=== PATIENT | female | born 1985 | race Caucasian/White ===

== ENCOUNTER 2020-01-06 13:10 | Observation (INO) | payer OTHER ==
[2020-01-06 16:16] LABS: GLUCOMETER DEV NAME(LOC) PVLAB.13
== END 2020-01-06 13:30 | disposition home or self-care (01) ==
LOC: 4S 13:10
PROVIDERS: ADMIT Obstetrics & Gynecology; ATTEND Obstetrics & Gynecology
DX: Z03.818 Encounter for observation for suspected exposure to other biological agents ruled out (principal); Z3A.00 Weeks of gestation of pregnancy not specified
CPT/HCPCS: 87635; G0378

== ENCOUNTER 2020-01-10 11:15 | Inpatient (IN) | payer OTHER ==
[~2020-01-10] VITALS: Ht 165.1 cm; Wt 71.2 kg
[2020-01-10] MEDS ORDERED: RINGERS SOLUTION,LACTATED 1,000 ML IV PRN (11:16)
[2020-01-10] MEDS ORDERED: OXYTOCIN 30 UNITS/LACT RINGERS 500 ML IV ONE (11:16)
[2020-01-10] MEDS ORDERED: METHYLERGONOVINE MALEATE 0.2 MG/ML VIAL IM PRN (11:30)
[2020-01-10] MEDS ORDERED: CITRIC ACID/SODIUM CITRATE 30 ML SOLUTION UDCUP PO PRN (11:30)
[2020-01-10] MEDS ORDERED: METOCLOPRAMIDE HCL 5 MG/ML 2 ML VIAL IVP PRN (11:30)
[2020-01-10] MEDS ORDERED: MISOPROSTOL 50 MCG TABLET PO ONE ×2 (11:30→19:30)
[2020-01-10] MEDS ORDERED: FentaNYL CITRATE-PF 100 MCG/2 ML VIAL IVP PRN (11:30)
[2020-01-10] MEDS ORDERED: LIDOCAINE/PF 1% 30 ML VIAL INJ PRN (11:30)
[2020-01-10] MEDS ORDERED: OXYGEN THERAPY IH SCH (11:30)
[2020-01-10] MEDS ORDERED: TERBUTALINE SULFATE 1 MG/ML VIAL SQ PRN (11:30)
[2020-01-10 12:32] LABS: BASOPHILS % (AUTO) 0.2 % (0.0-2.0); EOSINOPHILS % (AUTO) 2.5 % (1.0-6.0); HEMOGLOBIN 12.5 g/dL (12.0-16.0); LYMPHOCYTES # (AUTO) 1.2 K/uL (1.0-4.8); LYMPHOCYTES % (AUTO) 15.3 % (22.0-44.0); MEAN CORPUSCULAR HEMOGLOBIN 33.5 pg (26.0-34.0); MEAN CORPUSCULAR HGB CONC 34.8 G/dL (31.0-37.0); MEAN CORPUSCULAR VOLUME 96 fL (80-100); MONOCYTES # (AUTO) 0.6 K/uL (0.1-1.0); MONOCYTES % (AUTO) 7.9 % (2.0-9.0); NEUTROPHILS # (AUTO) 5.8 K/uL (1.8-7.7); NEUTROPHILS % (AUTO) 74.1 % (40.0-70.0); PLATELET COUNT (AUTO) 126 K/uL (150-450); RED BLOOD CELL COUNT(AUTO) 3.74 MIL/uL (4.00-5.20)
[2020-01-10] MEDS: RINGERS SOLUTION,LACTATED 1,000 ML IV SCH ×2 (12:35→18:57)
[2020-01-10 12:59] VITALS: BP 112/73
[2020-01-10] MEDS ORDERED: ROPIVACAINE HCL/PF 0.2% 100 ML ED ONE (22:16)
[2020-01-10] MEDS ORDERED: BUPIVACAINE HCL/PF 0.25% 10 ML VIAL ONE (22:16)
[2020-01-10] MEDS ORDERED: ONDANSETRON HCL 4 MG/2 ML VIAL IVP PRN (23:30)
[2020-01-10] MEDS ORDERED: DiphenhydrAMINE HCL 50 MG/ML VIAL IVP PRN (23:30)
[2020-01-10] MEDS ORDERED: ROPIVACAINE HCL/PF 0.2% 100 ML ED PRN (23:30)
[2020-01-10] MEDS ORDERED: NALBUPHINE HCL 10 MG/ML VIAL IVP PRN (23:30)
[2020-01-10] MEDS ORDERED: OXYTOCIN 30 UNITS/LACT RINGERS 500 ML IV PRN (23:48)
[2020-01-11] MEDS ORDERED: OXYTOCIN 30 UNITS/LACT RINGERS 500 ML IV ONE (13:37)
[2020-01-11] MEDS ORDERED: BENZOCAINE 20%/MENTHOL 56 GM SPRAY CANISTER TP PRN (13:45)
[2020-01-11] MEDS ORDERED: GLYCERIN/WITCH HAZEL LEAF 40 PADS JAR TP PRN (13:45)
[2020-01-11] MEDS ORDERED: LIDOCAINE/PF 1% 30 ML VIAL INJ PRN (13:45)
[2020-01-11] MEDS ORDERED: IBUPROFEN 800 MG TABLET PO PRN (13:45)
[2020-01-11] MEDS ORDERED: OxyCODONE HCL/ACETAMINOPHEN 5-325 MG TABLET PO PRN ×2 (13:45)
[2020-01-11] MEDS ORDERED: LANOLIN 7 GM OINTMENT TP PRN (13:45)
[2020-01-11] MEDS: MAGNESIUM HYDROXIDE SUSPENSION 30 ML UDCUP PO PRN (21:32)
[2020-01-12 07:50] LABS: BASOPHILS % (AUTO) 0.1 % (0.0-2.0); EOSINOPHILS % (AUTO) 1.3 % (1.0-6.0); HEMATOCRIT 33.1 % (36-46); LYMPHOCYTES # (AUTO) 1.8 K/uL (1.0-4.8); LYMPHOCYTES % (AUTO) 10.3 % (22.0-44.0); MEAN CORPUSCULAR HEMOGLOBIN 32.4 pg (26.0-34.0); MEAN CORPUSCULAR HGB CONC 33.2 G/dL (31.0-37.0); MEAN CORPUSCULAR VOLUME 98 fL (80-100); MONOCYTES # (AUTO) 1.2 K/uL (0.1-1.0); MONOCYTES % (AUTO) 7.3 % (2.0-9.0); NEUTROPHILS # (AUTO) 13.8 K/uL (1.8-7.7); PLATELET COUNT (AUTO)-OB 115 K/uL (150-450); RED BLOOD CELL COUNT(AUTO) 3.39 MIL/uL (4.00-5.20); RED CELL DISTRIBUTION WIDTH 13.4 % (11.5-14.5)
[2020-01-12] MEDS ORDERED: DOCU-275 PO (15:46)
[2020-01-12] MEDS ORDERED: IBUP-2071 PO (15:46)
[2020-01-12] MEDS: MAGNESIUM HYDROXIDE SUSPENSION 30 ML UDCUP PO PRN (16:21)
== END 2020-01-12 16:35 | disposition home or self-care (01) | DRG 807 ==
LOC: OBSVTOIN 11:15 → 4S 11:15
PROVIDERS: ADMIT Obstetrics & Gynecology Obstetrics; ATTEND Obstetrics & Gynecology Obstetrics
PROC: 10D07Z6 Extraction of Products of Conception, Vacuum, Via Natural or Artificial Opening (ICD-10-PCS; principal; 2020-01-11)
PROC: 0KQM0ZZ Repair Perineum Muscle, Open Approach (ICD-10-PCS; 2020-01-11)
PROC: 3E0R3BZ Introduction of Anesthetic Agent into Spinal Canal, Percutaneous Approach (ICD-10-PCS; 2020-01-11)
PROC: 00HU33Z Insertion of Infusion Device into Spinal Canal, Percutaneous Approach (ICD-10-PCS; 2020-01-11)
DX: O70.1 Second degree perineal laceration during delivery (principal); Z37.0 Single live birth; O69.81X0 Labor and delivery complicated by cord around neck, without compression, not applicable or unspecified; Z3A.39 39 weeks gestation of pregnancy
CPT/HCPCS: 86850; 86900; 86901; J2590; J2795; J3490; J7120